=== PATIENT | male | born 1955 | race Caucasian/White ===

== ENCOUNTER 2018-04-24 17:03 | Inpatient (IN) | payer OTHER ==
[~2018-04-24] VITALS: Ht 177.8 cm; Wt 110.0 kg
[2018-04-24 18:22] LABS: Hematocrit 19.8 % (41.0-53.0); Mean Corpuscular Hemoglobin 25.5 pg (28.0-32.0); Mean Corpuscular Hgb Conc. 32.2 g/dL (32.0-36.0); Mean Corpuscular Volume 79.1 fL (80.0-100.0); Platelet Count (auto) 97 10^3/uL (140-450); Red Blood Cells 2.51 10^6/uL (4.5-5.90); White Blood Cell 11.2 10^3/uL (4.4-10.8)
[2018-04-24 18:27] LABS: Hemoglobin 6.4 g/dL (13.5-17.5); Red Cell Distribution Width 22.5 % (11.8-14.3)
[2018-04-24 18:28] LABS: Basophils % (manual) 0 (0.0-2.0); Blast Cells 0; Metamyelocytes % 0; Myelocytes % 0; Promyelocytes % 0; Reactive Lymphocytes 0
[2018-04-24] MEDS ORDERED: SODIUM CHLORIDE 0.9% 1,000 ML IVB ONE (18:32)
[2018-04-24 18:34] LABS: Albumin 1.7 g/dL (3.4-5.0); Anion Gap 14 (5-15); BUN/Creatinine Ratio 10.5; Blood Urea Nitrogen 9 mg/dL (7-18); Calcium 8.1 mg/dL (8.5-10.1); Carbon Dioxide 25 mmol/L (21-32); Chloride 94 mmol/L (98-107); GFR African American 116 mL/min; GFR Non-African American 96 mL/min; Glucose 119 mg/dL (74-106); Magnesium 2.5 mg/dL (1.6-2.6); Sodium 133 mmol/L (136-145)
[2018-04-24 18:39] LABS: Alanine Aminotransferase 29 U/L (16-61); Alkaline Phosphatase 176 U/L (45-117); Aspartate Aminotransferase 41 U/L (15-37); Bilirubin, Total 0.5 mg/dL (0.2-1.0); Total Protein 7.4 g/dL (6.4-8.2)
[2018-04-24] MEDS ORDERED: PANTOPRAZOLE 40 MG/10 ML VIAL IV ONE (18:45)
[2018-04-24 18:46] LABS: Potassium 2.9 mmol/L (3.5-5.1)
[2018-04-24] MEDS ORDERED: MORPHINE SULF INJ 2 MG/ML SYRINGE 1ML IV ONE (19:00)
[2018-04-24] MEDS ORDERED: ONDANSETRON HCL 4 MG/2 ML VIAL IV ONE (19:00)
[2018-04-24 19:34] LABS: Band Neutrophils % (manual) 4; Eosinophils % (manual) 1 (0-7); Lymphocytes % (manual) 7 (10.0-50.0); Monocytes % (manual) 4 (0-12)
[2018-04-24 19:44] LABS: Amylase 17 U/L (25-115); Lipase 106 U/L (73-393)
[2018-04-24 19:51] LABS: INR 1.2 (0.9-1.15); Prothrombin Time 12.7 sec (9.27-12.13)
[2018-04-24] MEDS: POTASSIUM CHL 20MEQ/100ML 100 ML IV SCH ×2 (20:42→22:57)
[2018-04-24] MEDS ORDERED: MORPHINE SULFATE 4 MG/ML SYR/VIAL IV ONE (20:45)
[2018-04-24 21:49] VITALS: BP 127/65
[2018-04-24 22:09] VITALS: BP 127/65
[2018-04-24 22:25] VITALS: BP 132/78
[2018-04-24 22:50] VITALS: BP 123/77
[2018-04-24] MEDS ORDERED: PANTOPRAZOLE 80 MG in SODIUM CHL 0.9% 60 ML IV ONE (23:00)
[2018-04-24] MEDS ORDERED: SODIUM CHLORIDE 0.9% 1,000 ML IV SCH (23:00)
[2018-04-24] MEDS ORDERED: HYDROcodone-ACET 5/325MG TAB PO PRN (23:00)
[2018-04-24] MEDS ORDERED: ACETAMINOPHEN 500 MG TAB PO PRN (23:00)
[2018-04-24] MEDS ORDERED: MORPHINE SULF INJ 2 MG/ML SYRINGE 1ML IV PRN (23:00)
[2018-04-24 23:20] VITALS: BP 136/73
[2018-04-24 23:49] VITALS: BP 131/87
[2018-04-25] VITALS (13 sets, daily range): BP systolic 120–168; BP diastolic 36–89
[2018-04-25] MEDS ORDERED: LORazepam 0.5 MG TAB PO PRN (03:45)
[2018-04-25] MEDS ORDERED: LORazepam 2MG/ML-1ML VIAL IV ONE ×2 (03:45→04:00)
[2018-04-25] MEDS ORDERED: LORazepam 2MG/ML-1ML VIAL ONE (03:57)
[2018-04-25 07:54] LABS: Mean Corpuscular Hgb Conc. 32.8 g/dL (32.0-36.0)
[2018-04-25 07:56] LABS: Hematocrit 22.7 % (41.0-53.0); Hemoglobin 7.4 g/dL (13.5-17.5); Mean Corpuscular Hemoglobin 26.8 pg (28.0-32.0); Mean Corpuscular Volume 81.7 fL (80.0-100.0); Platelet Count (auto) 68 10^3/uL (140-450); Red Blood Cells 2.78 10^6/uL (4.5-5.90); White Blood Cell 9.3 10^3/uL (4.4-10.8)
[2018-04-25 08:09] LABS: BUN/Creatinine Ratio 11.4; Calcium 8.2 mg/dL (8.5-10.1); Potassium 3.1 mmol/L (3.5-5.1)
[2018-04-25 08:10] LABS: Red Cell Distribution Width 20.7 % (11.8-14.3)
[2018-04-25 08:11] LABS: Band Neutrophils % (manual) 0; Basophils % (manual) 0 (0.0-2.0); Blast Cells 0; Metamyelocytes % 0; Myelocytes % 0; Promyelocytes % 0; Reactive Lymphocytes 0
[2018-04-25 08:58] LABS: Eosinophils % (manual) 4 (0-7); Lymphocytes % (manual) 10 (10.0-50.0); Monocytes % (manual) 9 (0-12)
[2018-04-25 09:13] LABS: Urine Bacteria NONE SEEN /hpf (None Seen); Urine Blood TRACE /uL (Negative); Urine Mucus FEW (None Seen); Urine Specific Gravity 1.008 (1.001-1.035); Urine WBC <1 /hpf (0 - 3)
[2018-04-25] MEDS ORDERED: PANTOPRAZOLE 40 MG/10 ML VIAL IV SCH (10:00)
[2018-04-25 12:11] LABS: Hemoglobin 7.7 g/dL (13.5-17.5)
[2018-04-25 12:13] LABS: Hematocrit 22.8 % (41.0-53.0)
[2018-04-25] MEDS ORDERED: SODIUM CHLORIDE 0.9% 1,000 ML IV SCH (14:00)
[2018-04-25] MEDS: POTASSIUM CHL 20MEQ/100ML 100 ML IV SCH ×2 (14:45→16:27)
[2018-04-25] MEDS ORDERED: AML5T PO (17:40)
[2018-04-25] MEDS ORDERED: ATOR40TA52 PO (17:40)
[2018-04-25] MEDS ORDERED: MORP15TA PO (17:40)
[2018-04-25] MEDS ORDERED: SULF800T7 PO (17:40)
[2018-04-25] MEDS ORDERED: MONT10TA34 PO (17:40)
[2018-04-25] MEDS ORDERED: OMEP20TA PO (17:40)
[2018-04-25] MEDS ORDERED: ACYC400T PO (17:40)
[2018-04-25] MEDS ORDERED: MORP1CAP9 PO (17:40)
[2018-04-25] MEDS ORDERED: DEXA4TAB PO (17:40)
[2018-04-25] MEDS ORDERED: SERT-160 PO (17:40)
[2018-04-25] MEDS ORDERED: ONDA-143 PO (17:40)
[2018-04-25 18:30] LABS: Hematocrit 22.5 % (41.0-53.0)
[2018-04-25 18:31] LABS: Hemoglobin 7.5 g/dL (13.5-17.5)
== END 2018-04-25 21:10 | disposition short-term general hospital (02) | DRG 378 ==
LOC: EDUNIT# 17:03 → EDBD 17:03 → ER 17:11 → TELE 17:12 → DOU IN ICU 04-25 09:24
PROVIDERS: ADMIT Nurse Practitioner Family; ATTEND Internal Medicine
PROC: 30233N1 Transfusion of Nonautologous Red Blood Cells into Peripheral Vein, Percutaneous Approach (ICD-10-PCS; principal; 2018-04-24)
DX: K92.1 Melena (principal); C78.00 Secondary malignant neoplasm of unspecified lung; C90.00 Multiple myeloma not having achieved remission; M48.56XA Collapsed vertebra, not elsewhere classified, lumbar region, initial encounter for fracture; C85.90 Non-Hodgkin lymphoma, unspecified, unspecified site; D50.0 Iron deficiency anemia secondary to blood loss (chronic); D69.6 Thrombocytopenia, unspecified; E66.01 Morbid (severe) obesity due to excess calories; E87.6 Hypokalemia; I10 Essential (primary) hypertension; I70.8 Atherosclerosis of other arteries; M48.00 Spinal stenosis, site unspecified; Z82.49 Family history of ischemic heart disease and other diseases of the circulatory system; Z83.3 Family history of diabetes mellitus; Z88.8 Allergy status to other drugs, medicaments and biological substances
CPT/HCPCS: 36415; 36430; 71045; 71250; 74176; 80048; 80053; 81001; 82150; 83690; 83735; 83880; 84484; 85007; 85014; 85018; 85027; 85610; 85730; 86850; 86900; 86901; 86920; 87081; 93005; 96361; 96374; 96375; 99291; C9113; J2405; J3480